=== PATIENT | male | born 2000 | race Caucasian/White ===

== ENCOUNTER 2025-04-07 18:20 | Emergency (ER) | payer OTHER ==
[~2025-04-07] VITALS: Ht 185.4 cm; Wt 83.2 kg
[~2025-04-07 18:20] MED LIST: AMOX TR-K CLV1 EAC1 PO; MULTIVITAMIN1 EACH PO
[2025-04-07] MEDS ORDERED: predniSONE 20 MG TAB PO ONE (19:30)
[2025-04-07] MEDS ORDERED: diazePAM 10 MG/2 ML SYR IM ONE (19:30)
[2025-04-07] MEDS ORDERED: KETOROLAC TROMETHAMINE 60 MG/2 ML VIAL IM ONE (19:30)
[2025-04-07] MEDS ORDERED: CYCLOBENZAPRINE10 MG PO (20:23)
[2025-04-07] MEDS ORDERED: HYDROCODONE BIT/ACETAMINOPHEN 5/325 MG 1 TAB HOME.PACK PO ONE (20:30)
[2025-04-07] MEDS ORDERED: methylPREDNISolone 4 MG HOME.PACK PO ONE (20:30)
[2025-04-07 20:47] VITALS: BP 148/72
== END 2025-04-07 20:48 | disposition home or self-care (01) ==
LOC: ED 18:20
DX: M54.16 Radiculopathy, lumbar region (principal)
CPT/HCPCS: 72131; 96372; 99283-25; A9270; J1885; J3360; J7512